=== PATIENT | male | born 1980 | race Caucasian/White ===

== ENCOUNTER 2017-06-29 05:27 | Emergency (ER) | payer MEDICAID ==
[~2017-06-29] VITALS: Ht 170.2 cm; Wt 85.0 kg
[~2017-06-29 05:27] MED LIST: ALPR-624 PO; CEPH-571 PO; DEXL30CA3 PO; IBUP-1986 PO; NAPR-56 PO; ONDA4TAB6 PO
[2017-06-29 06:20] VITALS: BP 125/71
[2017-06-29] MEDS ORDERED: NAPR-56 PO (07:04)
[2017-06-29] MEDS ORDERED: naproxen 500mg tablet PO ONE (07:05)
== END 2017-06-29 07:25 | disposition home or self-care (01) ==
LOC: ER 05:28
DX: S96.912A Strain of unspecified muscle and tendon at ankle and foot level, left foot, initial encounter (principal); F15.10 Other stimulant abuse, uncomplicated; I10 Essential (primary) hypertension; K21.9 Gastro-esophageal reflux disease without esophagitis; Z87.11 Personal history of peptic ulcer disease; Z79.899 Other long term (current) drug therapy; Z56.0 Unemployment, unspecified; X50.1XXA Overexertion from prolonged static or awkward postures, initial encounter; Y93.89 Activity, other specified; Y92.89 Other specified places as the place of occurrence of the external cause; Y99.8 Other external cause status
CPT/HCPCS: 73610; 99284